=== PATIENT | female | born 1980 | race Caucasian/White ===

== ENCOUNTER 2016-06-16 17:52 | Emergency (ER) | payer OTHER ==
[~2016-06-16] VITALS: Ht 165.1 cm; Wt 90.7 kg
[~2016-06-16 17:52] MED LIST: AUGMENTIN 875 M1 TAB PO; METHADONE HYDROC5 MG PO
--- NOTE | 2016-06-16 20:01 | ED EAR COMPLAINT ---
History of Present Illness General Chief Complaint: Ear Complaints Stated Complaint: BILATERAL EAR PAIN Vital Signs & Intake/Output Vital Signs & Intake/Output Vital Signs Date Time Temp Pulse Resp B/P B/P Pulse O2 O2 Flow FiO2 Mean Ox Delivery Rate 06/16 1834 99.0 71 16 124/78 98 Room Air Allergies Coded Allergies: NO KNOWN ALLERGIES (06/19/13) Reconcile Medications AMOXICILLIN/POTASSIUM CLAV (Augmentin 875-125 Tablet) 875 MG/125 MG TAB 1 TAB PO BID CELLULITIS Methadone Hydrochloride 5 MG TAB 135 MG PO DAILY OPIOD DEPENDENCE (Reported) Triage Note: TRIAGE: BILATERAL EAR INFX L>R, MOXIFLOXACIN ANTIBIOTIC SINCE SUNDAY AND GIVEN FLONASE. STATES IBUPROFEN HAS NOT HELPED THE PAIN. STATES ITS DEEP AND THROBBING. "I FEEL LIKE SOMETHING IS BURROWING INTO MY BRAIN". C/O L NECK PAIN. NEUROS INTACT. Triage Nurses Notes Reviewed? yes : No Patient currently breastfeeds: No Past History Travel History Traveled to [place] past 21 day No Medical History Neurological: NONE EENT: NONE Cardiovascular: NONE Respiratory: NONE Gastrointestinal: NONE Hepatic: NONE Renal: NONE Musculoskeletal: NONE Psychiatric: anxiety, depression, substance abuse Endocrine: NONE Psychosocial History What is your primary language Yi Tobacco Use: Quit >30 days ago ETOH Use: denies use Illicit Drug Use: denies illicit drug use Review of Systems Review of Systems Constitutional: Reports: no symptoms. EENTM: Reports: no symptoms. Respiratory: Reports: no symptoms. Cardiovascular: Reports: no symptoms. GI: Reports: no symptoms. Genitourinary: Reports: no symptoms. Musculoskeletal: Reports: no symptoms. Skin: Reports: no symptoms. Neurological/Psychological: Reports: no symptoms. Hematologic/Endocrine: Reports: no symptoms. Immunologic/Allergic: Reports: no symptoms. All Other Systems: Reviewed and Negative Physical Exam Physical Exam General Appearance: well developed/nourished, mild distress Head: atraumatic Neck: normal inspection, supple Cardiovascular/Respiratory: normal breath sounds, regular rate/rhythm Back: normal inspection Neurologic/Psych: awake, alert, oriented x 3, normal mood/affect Skin: intact, normal color, warm/dry Departure Departure Condition: Stable Referrals: GABRIELA WYNNE,ROSY Luna (PCP/Family) Departure Forms: Customer Survey General Discharge Information
[2016-06-16 20:52] VITALS: BP 147/79
--- NOTE | 2016-06-16 20:53 | ED EAR COMPLAINT ---
History of Present Illness General Chief Complaint: Ear Complaints Stated Complaint: BILATERAL EAR PAIN Source: patient Exam Limitations: no limitations Vital Signs & Intake/Output Vital Signs & Intake/Output Vital Signs Date Time Temp Pulse Resp B/P B/P Pulse O2 O2 Flow FiO2 Mean Ox Delivery Rate 06/17 2051 98.3 66 18 147/79 96 06/16 1834 99.0 71 16 124/78 98 Room Air ED Intake and Output 06/17 0000 06/16 1200 Intake Total 0 Output Total Balance 0 Intake, Oral 0 Patient 200 lb Weight Weight Reported by Patient Measurement Method Allergies Coded Allergies: NO KNOWN ALLERGIES (06/19/13) Reconcile Medications AMOXICILLIN/POTASSIUM CLAV (Augmentin 875-125 Tablet) 875 MG/125 MG TAB 1 TAB PO BID CELLULITIS Ciprofloxacin HCl/Dexameth (Ciprodex Otic Suspension) 0.3 %-0.1 % DROPS.SUSP 4 GTT OT BID OTITIS EXTERNA Hydrocodone/Acetaminophen (Vicodin 5-300 MG Tablet) 5 MG-300 MG TABLET 1 TAB PO BID PRN PAIN Ketorolac Tromethamine 10 MG TABLET 1 TAB PO TID PRN PAIN Levofloxacin (Levaquin) 500 MG TABLET 1 TAB PO DAILY OTITIS MEDIA Methadone Hydrochloride 5 MG TAB 135 MG PO DAILY OPIOD DEPENDENCE (Reported) Triage Note: TRIAGE: BILATERAL EAR INFX L>R, MOXIFLOXACIN ANTIBIOTIC SINCE SUNDAY AND GIVEN FLONASE. STATES IBUPROFEN HAS NOT HELPED THE PAIN. STATES ITS DEEP AND THROBBING. "I FEEL LIKE SOMETHING IS BURROWING INTO MY BRAIN". C/O L NECK PAIN. NEUROS INTACT. Triage Nurses Notes Reviewed? yes Onset: Gradual Duration: getting worse Timing: recent history Severity: severe Severity Numbers: 10 : No Patient currently breastfeeds: No HPI: Patient is a 35-year-old female with a past medical history of anxiety, depression, methadone maintenance who presents emergent with a six-day history of bilateral ear pain where patient was prescribed moxifloxacin 5 days ago with no improvement of her symptoms. Patient denies any fever chills Denies any mechanism injury or ear discharge. Denies any sore throat neck pain neck stiffness (JOHN GENAO) Past History Travel History Traveled to [place] past 21 day No Medical History Any Pertinent Medical History? see below for history Neurological: NONE EENT: NONE Cardiovascular: NONE Respiratory: NONE Gastrointestinal: NONE Hepatic: NONE Renal: NONE Musculoskeletal: NONE Psychiatric: anxiety, depression, substance abuse Endocrine: NONE Surgical History Surgical History: non-contributory Psychosocial History What is your primary language [place] Tobacco Use: Quit >30 days ago ETOH Use: denies use Illicit Drug Use: denies illicit drug use Family History Hx Contributory? No (JOHN GENAO) Review of Systems Review of Systems Constitutional: Reports: no symptoms. EENTM: Reports: see HPI, ear pain. Denies: ear discharge, ear redness. Respiratory: Reports: no symptoms. Cardiovascular: Reports: no symptoms. GI: Reports: no symptoms. Genitourinary: Reports: no symptoms. Musculoskeletal: Reports: no symptoms. Skin: Reports: no symptoms. Neurological/Psychological: Reports: no symptoms. Hematologic/Endocrine: Reports: no symptoms. Immunologic/Allergic: Reports: no symptoms. All Other Systems: Reviewed and Negative (JOHN GENAO) Physical Exam Physical Exam General Appearance: moderate distress Ears: Bilateral: canal normal. Comments: HEENT: extraocular motion intact, no nystagmus. Pupils equally round and reactive to light and accommodation. Nose is atraumatic. Bilateral ear external anatomy nontender upon palpation and tragus movements Bilateral external auditory canal noted to be normal bilateral tympanic membranes noted to be erythematous and bulging tympanic membranes intact Pharynx normal. No swelling or edema. Neck: Supple, no lymphadenopathy, normal range of motion without pain or tenderness Back: Nontender, no CVA tenderness. Cardiovascular: Regular rate and rhythms no murmurs rubs or gallops, normal JVP Respiratory: Chest nontender. No respiratory distress.breath sounds clear to auscultation bilaterally Abdomen: Soft, nontender nondistended, no appreciable organomegaly. Normal bowel sounds. No ascites Extremity: No edema, no calf tenderness to palpation, normal and equal pulses. Neuro: Alert oriented x3, motor sensory normal, Skin: No appreciable rash on exposed skin, skin is warm and dry. Psych: Mood and affect is normal, memory and judgment is normal. (JOHN GENAO) Progress Differential Diagnoses I considered the following diagnoses in my evaluation of the patient: [Otitis externa, otitis media, sinusitis, mastoiditis, labyrinthitis, sepsis] Plan of Care: Current Medications Sig/Jackie Start time Last Medication Dose Stop Time Status Admin Ketorolac 30 MG ONCE ONE 06/16 2099 UNVr Tromethamine 06/16 2100 (Toradol) Due to history of present illness and exam findings my suspicion of bilateral otitis media is of high suspicion. Patient was strongly advised to follow-up with discharge instructions and plan I discussed with patient my hesitancy on prescribing narcotics due to patient on methadone for she states that as long as a prescription has been written that it is okay for her methadone maintenance. (JOHN GENAO) Initial ED EKG: none (JOHN GENAO) Departure Departure Disposition: HOME OR SELF CARE Condition: Stable Clinical Impression Primary Impression: Otitis media Referrals: GABRIELA WYNNE,ROSY Luna (PCP/Family) Additional Instructions: As discussed please begin the prescription of Levaquin for the full course, Ciprodex drops for the full course, ketorolac for pain and inflammation and Vicodin for breakthrough pain relief. Prescription is waiting a [facility] pharmacy. If symptoms worsen return to emergency room. If no better on Sunday follow-up with ENT Dr. Paz for further evaluation treatment Departure Forms: Customer Survey General Discharge Information Prescriptions: Current Visit Scripts Hydrocodone/Acetaminophen (Vicodin 5-300 MG Tablet) 1 TAB PO BID PRN PAIN #8 TAB Ketorolac Tromethamine 1 TAB PO TID PRN PAIN #15 TAB Ciprofloxacin HCl/Dexameth (Ciprodex Otic Suspension) 4 GTT OT BID #1 BOT Levofloxacin (Levaquin) 1 TAB PO DAILY #10 TAB (JOHN GENAO) PA/BROACH SETTER Co-Sign Statement Statement: ED Attending supervision documentation- [] I saw and evaluated the patient. I have also reviewed all the pertinent lab results and diagnostic results. I agree with the findings and the plan of care as documented in the PA's/BROACH SETTER's documentation. [x] I have reviewed the ED Record and agree with the PA's/BROACH SETTER's documentation. [] Additions or exceptions (if any) to the PAs/BROACH SETTER's note and plan are summarized below: [] (MICHELLE WYNNE,AREN Owens)
[2016-06-16] MEDS ORDERED: LEVAQUIN500 M1 PO (21:04)
[2016-06-16] MEDS ORDERED: KETOROLAC TROME10 M1 PO (21:04)
[2016-06-16] MEDS ORDERED: CIPRODEX OTIC7.5 ML OT (21:04)
[2016-06-16] MEDS ORDERED: VICODIN 5-3001 EACH PO (21:04)
== END 2016-06-16 21:12 ==
LOC: ERH 17:52
DX: H66.93 Otitis media, unspecified, bilateral (principal)
CPT/HCPCS: 96372; J1885